=== PATIENT | female | born 1975 | race African-American/Black ===

== ENCOUNTER 2016-11-08 08:14 | Emergency (ER) | payer MEDICAID ==
[~2016-11-08] VITALS: Ht 170.2 cm; Wt 143.3 kg
[~2016-11-08 08:14] MED LIST: birth control PO
--- NOTE | 2016-11-08 08:14 | NUR ---
BROUGHT BACK TO BED #8 AND TRIAGED. REPORT GIVEN TO INES
[2016-11-08 08:15] VITALS: BP 157/90; PULSE 67; RESP 18; TEMP 97.9; O2SAT 100
--- NOTE | 2016-11-08 08:25 | NUR ---
Patient in stable condition, alert and oriented x4. [facility] has had left eye issues since September including periorbital swelling, redness and crusting around eye. [facility] saw doctor in September and was prescribed antibiotic drops but did not relieve symptoms. Area below left eye appears swollen, white of eye has slight redness. No visual trouble per patient. No other complaints/injuries per patient or noted.
--- NOTE | 2016-11-08 08:44 | NUR ---
Dr. Brian at bedside examining patient
[2016-11-08 09:15] VITALS: BP 145/85; PULSE 70; RESP 18; TEMP 98; O2SAT 100
--- NOTE | 2016-11-08 09:15 | NUR ---
Patient given written and verbal discharge instructions and verbalizes understanding. ER MD discussed with patient the results and treatment provided. Patient in stable condition. ID arm band removed. 2 RXs given. Patient educated on pain management and to follow up with PMD in 2 days. Pain Scale 0/10. Opportunity for questions provided and answered.
== END 2016-11-08 09:15 | disposition home or self-care (01) ==
LOC: SED 08:14
DX: H57.8 Other specified disorders of eye and adnexa (principal)
CPT/HCPCS: 99283

== ENCOUNTER 2017-12-06 08:45 | Emergency (ER) | payer MEDICAID ==
[~2017-12-06] VITALS: Ht 170.2 cm; Wt 139.3 kg
[2017-12-06 09:03] VITALS: BP_SYST 160
[2017-12-06] MEDS ORDERED: NACL 0.9% 1,000 ML IV ONE (09:21)
[2017-12-06] MEDS ORDERED: FAMOTIDINE 20 MG TABLET PO ONE (09:30)
[2017-12-06 09:53] LABS: BASOPHILS # (AUTO) 0.1 K/uL (0.0-0.2); BASOPHILS % (AUTO) 1.1 % (0.0-2.0); EOSINOPHILS # (AUTO) 0.1 K/uL (0.0-0.4); EOSINOPHILS % (AUTO) 1.1 % (0.0-4.0); HEMATOCRIT 42.3 % (36-48); HEMOGLOBIN 13.6 g/dL (12.0-16.0); LYMPHOCYTES # (AUTO) 1.2 K/uL (1.0-5.5); LYMPHOCYTES % (AUTO) 23.2 % (20.5-51.5); MEAN CORPUSCULAR HEMOGLOBIN 29 pg (27-31); MEAN CORPUSCULAR HGB CONC 32 % (32-36); MEAN CORPUSCULAR VOLUME 91 fL (79.0-98.0); MONOCYTES # (AUTO) 0.3 K/uL (0.0-1.0); MONOCYTES % (AUTO) 5.5 % (1.7-9.3); NEUTROPHILS # (AUTO) 3.3 K/uL (1.8-7.7); NEUTROPHILS % (AUTO) 69.1 % (40.0-70.0); PLATELET COUNT (AUTO) 326 K/uL (130-430); RED BLOOD CELL COUNT(AUTO) 4.64 MIL/uL (4.2-6.2)
[2017-12-06 10:10] LABS: CALCIUM 9.5 mg/dL (8.4-11.0); CREATININE 0.95 mg/dL (0.55-1.30); POTASSIUM 3.8 mmol/L (3.5-5.1)
[2017-12-06 10:10] LABS: BILIRUBIN,URINE NEGATIVE (NEGATIVE); BLOOD, URINE NEGATIVE (NEGATIVE); CLARITY/URINE HAZY (CLEAR); COLOR,URINE YELLOW (YELLOW); GLUCOSE,URINE NEGATIVE (NEGATIVE); KETONES,URINE NEGATIVE (NEGATIVE); LEUKOCYTE ESTERASE ,URINE NEGATIVE (NEGATIVE); NITRITE, URINE POSITIVE (NEGATIVE); PROTEIN URINE NEGATIVE (NEGATIVE); UROBILINOGEN,URINE 0.2 (0.2-1.0)
[2017-12-06 10:24] LABS: BACTERIA,URINE MANY /HPF (None Seen); RBC,URINE 0-3 /HPF (0-3)
[2017-12-06 10:25] LABS: MUCUS,URINE None Seen /LPF (None Seen)
[2017-12-06 10:26] LABS: FREE T4 (FREE THYROXINE) 0.6 ng/dL (0.6-1.6); PHOSPHORUS 3.7 mg/dL (2.7-4.5); THYROID STIMULATING HORMONE 1.06 uIu/mL (0.34-4.82); TOTAL BILIRUBIN 0.6 mg/dL (0.0-1.0)
[2017-12-06] MEDS ORDERED: CIPROFLOXACIN HCL 500 MG TABLET PO ONE (10:30)
[2017-12-06 11:25] VITALS: BP_SYST 126
== END 2017-12-06 11:25 | disposition home or self-care (01) ==
LOC: SED 08:45
DX: R19.7 Diarrhea, unspecified (principal); N39.0 Urinary tract infection, site not specified; Z90.710 Acquired absence of both cervix and uterus
CPT/HCPCS: 36415; 80053; 81000-TC; 83735-TC; 84100-TC; 84439; 84443-TC; 85025; 86710; 87086; 96360; 99284

== ENCOUNTER 2018-05-11 07:34 | Emergency (ER) | payer MEDICAID ==
[~2018-05-11] VITALS: Ht 170.2 cm; Wt 131.5 kg
[2018-05-11 07:39] VITALS: BP_SYST 145
[2018-05-11 08:02] LABS: BILIRUBIN,URINE NEGATIVE (NEGATIVE); BLOOD, URINE NEGATIVE (NEGATIVE); CLARITY/URINE CLEAR (CLEAR); COLOR,URINE YELLOW (YELLOW); GLUCOSE,URINE NEGATIVE (NEGATIVE); KETONES,URINE NEGATIVE (NEGATIVE); LEUKOCYTE ESTERASE ,URINE NEGATIVE (NEGATIVE); NITRITE, URINE NEGATIVE (NEGATIVE); PROTEIN URINE NEGATIVE (NEGATIVE); UROBILINOGEN,URINE 0.2 (0.2-1.0)
[2018-05-11] MEDS ORDERED: IBUPROFEN 600 MG TABLET PO ONE (08:15)
[2018-05-11 08:45] VITALS: BP_SYST 138
== END 2018-05-11 08:45 | disposition home or self-care (01) ==
LOC: SED 07:34
DX: J32.9 Chronic sinusitis, unspecified (principal); R30.0 Dysuria
CPT/HCPCS: 81003; 87491; 87591; 99283

== ENCOUNTER 2018-05-18 21:47 | Emergency (ER) | payer MEDICAID ==
[~2018-05-18] VITALS: Ht 170.2 cm; Wt 133.4 kg
[2018-05-18 21:50] VITALS: BP_SYST 161
[2018-05-18] MEDS ORDERED: CYCLOBENZAPRINE HCL 10 MG TABLET (FLEXERIL) PO ONE (23:00)
[2018-05-18] MEDS ORDERED: KETOROLAC TROMETHAMINE 30 MG VIAL IM ONE (23:00)
[2018-05-18] MEDS ORDERED: ONDANSETRON 4 MG ODT TAB PO ONE (23:00)
[2018-05-19] MEDS ORDERED: HYDROcodone/ACETAMIN 5-325 MG TAB (NORCO/ VICODIN) PO ONE (00:30)
[2018-05-19 00:49] VITALS: BP_SYST 137
== END 2018-05-19 00:49 | disposition home or self-care (01) ==
LOC: SED 21:47
DX: S16.1XXA Strain of muscle, fascia and tendon at neck level, initial encounter (principal); S39.012A Strain of muscle, fascia and tendon of lower back, initial encounter; I10 Essential (primary) hypertension; V43.52XA Car driver injured in collision with other type car in traffic accident, initial encounter; Y93.89 Activity, other specified; Y92.410 Unspecified street and highway as the place of occurrence of the external cause; Y99.8 Other external cause status
CPT/HCPCS: 72040; 72100; 96372; 99284; J1885; Q0162

== ENCOUNTER 2022-09-14 10:22 | Emergency (ER) | payer MEDICAID ==
[~2022-09-14] VITALS: Ht 170.2 cm; Wt 148.3 kg
[2022-09-14 10:22] VITALS: BP_SYST 134
[2022-09-14] MEDS ORDERED: ONDANSETRON 4 MG ODT TAB PO ONE (10:45)
[2022-09-14] MEDS ORDERED: ONDA-8 TL (10:45)
[2022-09-14] MEDS ORDERED: TRAM50TA2 PO (10:45)
== END 2022-09-14 11:11 | disposition home or self-care (01) ==
LOC: SED 10:22
DX: G43.909 Migraine, unspecified, not intractable, without status migrainosus (principal); R11.0 Nausea; Z79.899 Other long term (current) drug therapy
CPT/HCPCS: 99283; Q0162

== ENCOUNTER 2023-01-18 13:37 | Emergency (ER) | payer MEDICAID ==
[~2023-01-18] VITALS: Ht 170.2 cm; Wt 155.6 kg
[~2023-01-18 13:37] MED LIST changes: +ONDA-8 TL; +TRAM50TA2 PO
[2023-01-18 13:43] VITALS: BP_SYST 148
--- NOTE | 2023-01-18 13:45 | NUR ---
Patient to ER bed H1 to gown for evaluation. Side rails up.
--- NOTE | 2023-01-18 13:55 | NUR ---
DR. HERNANDEZ EVALUTED PATIENT AT BEDSIDE.
--- NOTE | 2023-01-18 14:02 | NUR ---
PT BROUGHT BY SELF, AMBULATORY, A&OX4, C/O RIGHT ANKLE, PAIN 7/. KICKED SIDE OF PATIENT'S BED. DENIES ALL OTHER INJURIES. NO SWELLING NOTED.
[2023-01-18 15:24] VITALS: BP_SYST 148
--- NOTE | 2023-01-18 15:24 | NUR ---
Patient given written and verbal discharge instructions and verbalizes understanding. ER MD discussed with patient the results and treatment provided. Patient in stable condition. ID arm band removed. No Rx given. Patient educated on pain management and to follow up with PMD. Pain Scale 2/10 . Opportunity for questions provided and answered. Medication side effect fact sheet provided.
== END 2023-01-18 15:24 | disposition home or self-care (01) ==
LOC: SED 13:37
DX: S93.401A Sprain of unspecified ligament of right ankle, initial encounter (principal); Z79.899 Other long term (current) drug therapy; W06.XXXA Fall from bed, initial encounter; Y93.89 Activity, other specified; Y92.89 Other specified places as the place of occurrence of the external cause; Y99.8 Other external cause status
CPT/HCPCS: 99283

== ENCOUNTER 2023-02-27 10:07 | Emergency (ER) | payer MEDICAID ==
[~2023-02-27] VITALS: Ht 170.2 cm; Wt 150.6 kg
[2023-02-27 10:27] VITALS: BP_SYST 164
--- NOTE | 2023-02-27 12:35 | NUR ---
Patient to ER bed H1 to gown for evaluation. Side rails up.
--- NOTE | 2023-02-27 12:36 | NUR ---
PT PRESENTS TO ED WITH REPORT OF MIGRAINE SINCE MONDAY. PT STATES SHE VOMITED MONDAY NIGHT AND ALSO REPORTS VOMITING X 2 WHILE WAITING IN ER LOBBY. PT AWAKE A/O X4 AND VERALLY RESPONSIVE. PT STATES "I JUST WANT SOME ZOFRAN AND A WORK NOTE TO BE OFF UNTIL MONDAY. THAT'S ALL I NEED. I DONT WANT NO IV COCKTAIL OR ANY OF THAT. JUST A PRESCRIPTION AND A WORK NOTE." PT BREATHING EVEN AND UNLABORED, NO ACUTE DISTRESS NOTED. SITTING UPRIGHT IN RNEY. SAFETY MEASURES IN PLACE
[2023-02-27] MEDS ORDERED: ONDA-8 TL (14:19)
--- NOTE | 2023-02-27 14:26 | NUR ---
DISCHARGE INSTRUCTIONS REVIEWED WITH PT. PT VERBALIZED UNDERSTANDING AND DENIED ANY QUESTIONS. PT AMBULATED FROM ED WITH STEADY GAIT
== END 2023-02-27 14:26 | disposition home or self-care (01) ==
LOC: SED 10:07
DX: G43.909 Migraine, unspecified, not intractable, without status migrainosus (principal); R11.0 Nausea; Z53.21 Procedure and treatment not carried out due to patient leaving prior to being seen by health care provider
CPT/HCPCS: 99281